=== PATIENT | male | born 1930 | race Caucasian/White ===

== ENCOUNTER 2017-12-16 10:03 | Inpatient (IN) | payer MEDICARE, OTHER ==
[~2017-12-16] VITALS: Ht 177.8 cm; Wt 79.8 kg
[2017-12-16] VITALS (13 sets, daily range): BP systolic 101–140; BP diastolic 55–76; PULSE 66–73; RESP 14–20; TEMP 96.3–98.1; O2SAT 94–100
[~2017-12-16 10:03] MED LIST: ALBU0.08 NEB; ALPR.25 PO; ASPI81CH6 CHEW; FURO1TAB62 PO; HYDR-3580 PO; IPRA0.02 NEB; MELA3TAB PO; PRED5TAB PO
[2017-12-16] MEDS ORDERED: SODIUM CHLORIDE 0.9% FLUSH 10 ML FLUSH IV FLUSH PRN ×2 (10:45→13:30)
--- NOTE | 2017-12-16 10:54 | PD ---
HPI Chief Complaint: Abnormal Results Time Seen by Provider: 10:26 Travel History International Travel<30 days: No Contact w/Intl Traveler<30days: No Traveled to known affect area: No History of Present Illness HPI Patient is an 86-year-old male presents emergency department for evaluation of decreased hemoglobin on recent blood work at the [place]. Patient has no complaints currently, denies any abdominal pain nausea vomiting diarrhea, in the stool or dark melena stool. States he doesn't think he needs to be here. States he's ever had a colonoscopy to me before, some mild confusion is apparent. Hemoglobin was apparently 6.8 at the correction. Condition is severe, associated signs symptoms and context as above, no alleviating or exacerbating factors. PFSH Past Medical History Narrative Medical COPD, history of urinary retention, insomnia. Past Surgical History Narrative Surgical Right leg orthopedic fixture, coronary artery stenting, Social History Tobacco Use: No Allergies-Medications (Allergen,Severity, Reaction): Coded Allergies: Penicillins (Verified Allergy, Severe, RASH, 12/16/17) ciprofloxacin (Verified Allergy, Severe, RASH, 12/16/17) Reported Meds & Prescriptions Reported Meds & Active Scripts Active Reported Spiriva Respimat Inh (Tiotropium Inh) 2.5 Mcg/Act Aero 2 Puff INH DAILY 2.5 mcg = 1 inhalation Prednisone 5 Mg Tab 5 Mg PO DAILY Ipratropium Neb (Ipratropium [place]) 0.5 Mg/2.5 Ml Amp 0.5 Mg NEB TID as needed. Hydrocodone-Acetaminophen 7.5 Mg-325 Mg Tab 1 Tab PO Q6H PRN Xanax (Alprazolam) 0.25 Mg Tab 0.25 Mg PO BID PRN Melatonin 3 Mg Tab 3 Mg PO HS Lasix (Furosemide) 20 Mg Tab 20 Mg PO DAILY Albuterol Neb (Albuterol Sulfate) 2.5 Mg/3 Ml Neb 2.5 Mg NEB QID NEB Aspirin Low Dose (Aspirin) 81 Mg Chew 81 Mg CHEW DAILY Review of Systems Except as stated in HPI: all other systems reviewed are Neg Physical Exam Narrative GENERAL: Well-developed well-nourished no obvious distress SKIN: Focused skin assessment warm/dry. HEAD: Atraumatic. Normocephalic. EYES: Pupils equal and round. No scleral icterus. No injection or drainage. ENT: No nasal bleeding or discharge. Mucous membranes pink and moist. NECK: Trachea midline. No JVD. CARDIOVASCULAR: Regular rate and rhythm. No murmur appreciated. RESPIRATORY: No accessory muscle use. Clear to auscultation. Breath sounds equal bilaterally. GASTROINTESTINAL: Abdomen soft, non-tender, nondistended. Hepatic and splenic margins not palpable. Rectal exam: Grossly melanotic stool Hemoccult positive. No masses no fissure prostate smooth.. MUSCULOSKELETAL: No obvious deformities. No clubbing. No cyanosis. No edema. NEUROLOGICAL: Awake and alert. No obvious cranial nerve deficits. Motor grossly within normal limits. Normal speech. PSYCHIATRIC: Appropriate mood and affect; insight and judgment normal. Data Data Last Documented VS Vital Signs Date Time Temp Pulse Resp B/P (MAP) Pulse Ox O2 Delivery O2 Flow Rate FiO2 12/16/17 13:15 97.8 66 17 116/62 (80) 99 Nasal Cannula 2.00 Orders Orders Complete Blood Count With Diff (12/16/17 10:37) Comprehensive Metabolic Panel (12/16/17 10:37) Iv Access Insert/Monitor (12/16/17 10:37) Ecg Monitoring (12/16/17 10:37) Oximetry (12/16/17 10:37) Sodium Chloride 0.9% Flush (Ns Flush) (12/16/17 10:45) Type And Screen (12/16/17 10:37) Act Partial Throm Time (Ptt) (12/16/17 10:37) Prothrombin Time / Inr (Pt) (12/16/17 10:37) Red Blood Cells (Rbc) (12/16/17 11:51) Blood Product Administration (12/16/17 11:51) Sodium Chlor 0.9% 250 Ml Inj (Ns 250 Ml (12/16/17 12:00) Admit Order (Ed Use Only) (12/16/17 ) Labs Laboratory Tests Test 12/16/17 10:50 White Blood Count 9.1 TH/MM3 Red Blood Count 2.66 MIL/MM3 Hemoglobin 7.3 GM/DL Hematocrit 21.8 % Mean Corpuscular Volume 82.1 FL Mean Corpuscular Hemoglobin 27.5 PG Mean Corpuscular Hemoglobin Concent 33.5 % Red Cell Distribution Width 16.0 % Platelet Count 218 TH/MM3 Mean Platelet Volume 8.2 FL Neutrophils (%) (Auto) 84.9 % Lymphocytes (%) (Auto) 8.5 % Monocytes (%) (Auto) 5.3 % Eosinophils (%) (Auto) 1.0 % Basophils (%) (Auto) 0.3 % Neutrophils # (Auto) 7.7 TH/MM3 Lymphocytes # (Auto) 0.8 TH/MM3 Monocytes # (Auto) 0.5 TH/MM3 Eosinophils # (Auto) 0.1 TH/MM3 Basophils # (Auto) 0.0 TH/MM3 CBC Comment DIFF FINAL Differential Comment Prothrombin Time 10.2 SEC Prothromb Time International Ratio 1.0 RATIO Activated Partial Thromboplast Time 25.4 SEC Blood Urea Nitrogen 74 MG/DL Creatinine 2.04 MG/DL Random Glucose 120 MG/DL Total Protein 6.9 GM/DL Albumin 2.9 GM/DL Calcium Level 9.0 MG/DL Alkaline Phosphatase 62 U/L Aspartate Amino Transf (AST/SGOT) 5 U/L Alanine Aminotransferase (ALT/SGPT) 10 U/L Total Bilirubin 0.2 MG/DL Sodium Level 137 MEQ/L Potassium Level 4.5 MEQ/L Chloride Level 103 MEQ/L Carbon Dioxide Level 25.2 MEQ/L Anion Gap 9 MEQ/L Estimat Glomerular Filtration Rate 31 ML/MIN [facility] Medical Decision Making Medical Screen Exam Complete: Yes Emergency Medical Condition: Yes Differential Diagnosis GI bleed, melena, anemia Narrative Course Vision roomed in emergency department, found to have a hemoglobin just in excess of 7, has grossly melanotic stools, discussed with him need for admission , he is not on any blood thinners, we'll be transfusing the emergency department any head wrist and discomfort patient and alternatives discussed with him. He is discussed with Dr. Velásquez for admission. Diagnosis Primary Impression: GI bleeding Additional Impression: Anemia Admitting Information Admitting Physician Requests: Admit Condition: Elder Sibley MD Dec 16, 2017 10:54
[2017-12-16] MEDS ORDERED: PRED5TAB PO (11:15)
[2017-12-16] MEDS ORDERED: TIOT12.9 INH (11:15)
[2017-12-16 11:47] LABS: AUTOMATED NEUTROPHIL # 7.7 TH/MM3 (1.8-7.7); BASOPHIL % 0.3 % (0.0-2.0); EOSINOPHIL # 0.1 TH/MM3 (0-0.4); HEMATOCRIT 21.8 % (39.0-51.0); HEMOGLOBIN 7.3 GM/DL (13.0-17.0); LYMPH % 8.5 % (9.0-44.0); LYMPHOCYTE # 0.8 TH/MM3 (1.0-4.8); MEAN CELL VOLUME 82.1 FL (80.0-100.0); MEAN CORPUSCULAR HEMOGLOBIN 27.5 PG (27.0-34.0); MEAN CORPUSCULAR HGB CONC 33.5 % (32.0-36.0); MEAN PLATELET VOLUME 8.2 FL (7.0-11.0); MONO % 5.3 % (0.0-8.0); MONOCYTE # 0.5 TH/MM3 (0-0.9); NEUT % 84.9 % (16.0-70.0); PLATELET COUNT 218 TH/MM3 (150-450); RED BLOOD COUNT 2.66 MIL/MM3 (4.50-5.90); WHITE BLOOD COUNT 9.1 TH/MM3 (4.0-11.0)
[2017-12-16] MEDS ORDERED: SODIUM CHLOR 0.9% 250 ML INJ 250 ML IV ONE ×2 (12:00→13:30)
[2017-12-16 12:07] LABS: ALBUMIN 2.9 GM/DL (3.4-5.0); ALT (GPT) 10 U/L (12-78); AST (GOT) 5 U/L (15-37); BICARBONATE 25.2 MEQ/L (21.0-32.0); BLOOD UREA NITROGEN 74 MG/DL (7-18); CHLORIDE 103 MEQ/L (98-107); CREATININE 2.04 MG/DL (0.60-1.30); GLOMERULAR FILTRATION RATE 31 ML/MIN (>89); GLUCOSE,RANDOM 120 MG/DL (74-106); SODIUM (NA) 137 MEQ/L (136-145)
[2017-12-16 12:10] LABS: ALKALINE PHOSPHATASE 62 U/L (45-117); TOTAL BILIRUBIN ADULT 0.2 MG/DL (0.2-1.0); TOTAL PROTEIN 6.9 GM/DL (6.4-8.2)
[2017-12-16 12:33] LABS: PROTHROMBIN TIME - PATIENT 10.2 SEC (9.8-11.6)
[2017-12-16] MEDS ORDERED: BISACODYL 10 MG SUPP RECTAL PRN (13:30)
[2017-12-16] MEDS ORDERED: ONDANSETRON HCL 4 MG/2 ML VIAL IVP PRN (13:30)
[2017-12-16] MEDS ORDERED: SENNOSIDES 8.6 MG TAB PO PRN (13:30)
[2017-12-16] MEDS ORDERED: LACTULOSE SYRUP 20 GM/30 ML CUP PO PRN (13:30)
[2017-12-16] MEDS ORDERED: NALOXONE HCL 0.4 MG/ML AMP IV PUSH PRN (13:30)
[2017-12-16] MEDS ORDERED: FUROSEMIDE 20 MG/2 ML VIAL IV PUSH ONE (14:00)
[2017-12-16] MEDS: PANTOPRAZOLE SODIUM 40 MG VIAL IV PUSH SCH (14:29)
[2017-12-16] MEDS: SODIUM CHLORIDE 0.9% FLUSH 10 ML FLUSH IV FLUSH SCH (21:00)
--- NOTE | 2017-12-16 21:12 | HHI.HP ---
[facility] Primary Care Physician Unknown Admission Diagnosis GI bleed, Melena, Anemia. Diagnoses: (1) GI bleeding (2) Anemia Travel History International Travel<30 Days: No Contact w/Intl Traveler <30 Da: No Traveled to Known Affected Are: No History of Present Illness 86M with mild to moderate dementia presents to the ER after outpatient labwork revealed a Hgb level of 6.8. ER rectal exam showed dark GUIAC positive stool. Patient says he is pain free, and does not recall any bloody stools in the toilet. He denies nausea, vomiting or melena. 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 Review of Systems ROS Limitations: Poor Historian Constitutional: DENIES: Fever Eyes: DENIES: Blurred vision, Vision loss Ears, nose, mouth, throat: DENIES: Hearing loss, Running Nose, Epistaxis Respiratory: DENIES: Cough, Hemoptysis Cardiovascular: DENIES: Chest pain, Palpitations, Syncope Musculoskeletal: COMPLAINS OF: Joint pain Psychiatric: COMPLAINS OF: Confusion Past Family Social History Past Medical History Unreliable history (he denies other medical issues) Past Surgical History Metal geri in right leg "a long time ago" Allergies: Coded Allergies: Penicillins (Verified Allergy, Severe, RASH, 12/16/17) ciprofloxacin (Verified Allergy, Severe, RASH, 12/16/17) Family History unable to recall Social History Distant past history of smoking cigarettes, social drinking (though not recently ) Physical Exam Vital Signs Vital Signs Date Time Temp Pulse Resp B/P (MAP) Pulse Ox O2 Delivery O2 Flow Rate FiO2 12/16/17 20:14 97.7 70 14 116/58 97 12/16/17 19:53 98 Nasal Cannula 2.00 12/16/17 19:51 97.8 72 14 140/65 97 12/16/17 17:05 98.0 69 16 108/65 (79) 98 Nasal Cannula 2.00 12/16/17 17:00 97.9 69 17 108/65 99 12/16/17 15:58 97.8 72 20 118/57 (77) 98 Nasal Cannula 2.00 12/16/17 14:45 97.9 70 18 114/56 100 12/16/17 14:30 97.8 68 16 101/55 99 12/16/17 13:15 97.8 66 17 116/62 (80) 99 Nasal Cannula 2.00 12/16/17 12:01 97.9 70 18 108/76 (87) 99 Nasal Cannula 2.00 12/16/17 10:50 20 98 Nasal Cannula 2.00 12/16/17 10:15 98.1 68 20 111/58 (75) 98 12/16/17 10:15 68 20 99 Nasal Cannula 2.00 Physical Exam GENERAL: This is a well-nourished, well-developed patient, baseline dementia with some possible new confusion SKIN: No rashes, ecchymoses or lesions. Cool and dry. HEAD: Atraumatic. Normocephalic. No temporal or scalp tenderness. EYES: Pupils equal round and reactive. Extraocular motions intact. No scleral icterus. No injection or drainage. ENT: Nose without bleeding, purulent drainage or septal hematoma. Throat without erythema, tonsillar hypertrophy or exudate. Uvula midline. Airway patent. NECK: Trachea midline. No JVD or lymphadenopathy. Supple, nontender, no meningeal signs. CARDIOVASCULAR: Regular rate and rhythm without murmurs, gallops, or rubs. RESPIRATORY: Clear to auscultation. Breath sounds equal bilaterally. No wheezes , rales, or rhonchi. GASTROINTESTINAL: Abdomen soft, non-tender, nondistended. No hepato-splenomegaly , or palpable masses. No guarding. MUSCULOSKELETAL: Extremities without clubbing, cyanosis, or edema. No joint tenderness, effusion, or edema noted. No calf tenderness. NEUROLOGICAL: Awake and alert. Cranial nerves II through XII intact. Motor and sensory grossly within normal limits. Five out of 5 muscle strength in all muscle groups. Normal speech. Laboratory Laboratory Tests Test 12/16/17 10:50 White Blood Count 9.1 Red Blood Count 2.66 Hemoglobin 7.3 Hematocrit 21.8 Mean Corpuscular Volume 82.1 Mean Corpuscular Hemoglobin 27.5 Mean Corpuscular Hemoglobin Concent 33.5 Red Cell Distribution Width 16.0 Platelet Count 218 Mean Platelet Volume 8.2 Neutrophils (%) (Auto) 84.9 Lymphocytes (%) (Auto) 8.5 Monocytes (%) (Auto) 5.3 Eosinophils (%) (Auto) 1.0 Basophils (%) (Auto) 0.3 Neutrophils # (Auto) 7.7 Lymphocytes # (Auto) 0.8 Monocytes # (Auto) 0.5 Eosinophils # (Auto) 0.1 Basophils # (Auto) 0.0 CBC Comment DIFF FINAL Differential Comment Prothrombin Time 10.2 Prothromb Time International Ratio 1.0 Activated Partial Thromboplast Time 25.4 Blood Urea Nitrogen 74 Creatinine 2.04 Random Glucose 120 Total Protein 6.9 Albumin 2.9 Calcium Level 9.0 Alkaline Phosphatase 62 Aspartate Amino Transf (AST/SGOT) 5 Alanine Aminotransferase (ALT/SGPT) 10 Total Bilirubin 0.2 Sodium Level 137 Potassium Level 4.5 Chloride Level 103 Carbon Dioxide Level 25.2 Anion Gap 9 Estimat Glomerular Filtration Rate 31 Result Diagram: 12/16/17 1050 12/16/17 1050 Caprini VTE Risk Assessment Caprini VTE Risk Assessment: Mod/High Risk (score >= 2) Caprini Risk Assessment Model Point Value = 1 Point Value = 2 Point Value = 3 Point Value = 5 Age 41-60 Minor surgery BMI > 25 kg/m2 Swollen legs Varicose veins or History of unexplained or recurrent spontaneous Oral contraceptives or hormone replacement Sepsis (< 1 month) Serious lung disease, including pneumonia (< 1 month) Abnormal pulmonary function Acute myocardial infarction Congestive heart failure (< 1 month) History of inflammatory bowel disease Medical patient at bed rest Age 61-74 Arthroscopic surgery Major open surgery (> 45 min) Laparoscopic surgery (> 45 min) Malignancy Confined to bed (> 72 hours) Immobilizing plaster cast Central venous access Age >= 75 History of VTE Family history of VTE Factor V Leiden Prothrombin [id number] Lupus anticoagulant Anticardiolipin antibodies Elevated serum homocysteine Heparin-induced thrombocytopenia Other congenital or acquired thrombophilia Stroke (< 1 month) Elective arthroplasty Hip, pelvis, or leg fracture Acute spinal cord injury (< 1 month) Prophylaxis Regimen Total Risk Factor Score Risk Level Prophylaxis Regimen 0-1 Low Early ambulation 2 Moderate Order ONE of the following: *Sequential Compression Device (SCD) *Heparin 5000 units SQ BID 3-4 Higher Order ONE of the following medications: *Heparin 5000 units SQ TID *Enoxaparin/Lovenox 40 mg SQ daily (WT < 150 kg, CrCl > 30 mL/min) *Enoxaparin/Lovenox 30 mg SQ daily (WT < 150 kg, CrCl > 10-29 mL/min) *Enoxaparin/Lovenox 30 mg SQ BID (WT < 150 kg, CrCl > 30 mL/min) AND/OR *Sequential Compression Device (SCD) 5 or more Highest Order ONE of the following medications: *Heparin 5000 units SQ TID (Preferred with Epidurals) *Enoxaparin/Lovenox 40 mg SQ daily (WT < 150 kg, CrCl > 30 mL/min) *Enoxaparin/Lovenox 30 mg SQ daily (WT < 150 kg, CrCl > 10-29 mL/min) *Enoxaparin/Lovenox 30 mg SQ BID (WT < 150 kg, CrCl > 30 mL/min) AND *Sequential Compression Device (SCD) Assessment and Plan Problem List: (1) GI bleeding ICD Code: K92.2 - Gastrointestinal hemorrhage, unspecified Status: Acute (2) Anemia ICD Code: D64.9 - Anemia, unspecified Status: Acute Assessment and Plan GI Bleed, Anemia Asymptomatic for the most part, so this may be more insidious than acute Transfuse 2 units of PRBC, follow Hgb trend GI consulted Confusion Staff describes some worsening of confusion throughout the day Possible worsening of dementia related to blood losses, possible owning due to unfamiliar location Continue transfusion and reassess Dementia Seems to be his basline, no dementia meds on med list Will reassess following transfusion COPD? Not by history, but by his PRN med list including ipratropium, albuterol, prednisone Will treat if symptoms develop DVT Prophylaxis Anticoagulants held due to GI bleed SCD's Fidel Velásquez MD Dec 16, 2017 21:12
[2017-12-17] VITALS: BP 113/61; PULSE 83; RESP 18; TEMP 97.7; O2SAT 96
[2017-12-17 06:29] LABS: AUTOMATED NEUTROPHIL # 6.4 TH/MM3 (1.8-7.7); BASOPHIL # 0.1 TH/MM3 (0-0.2); BASOPHIL % 0.6 % (0.0-2.0); EOSINOPHIL # 0.2 TH/MM3 (0-0.4); EOSINOPHIL % 1.6 % (0.0-4.0); HEMATOCRIT 27.3 % (39.0-51.0); HEMOGLOBIN 9.3 GM/DL (13.0-17.0); LYMPH % 20.1 % (9.0-44.0); LYMPHOCYTE # 1.9 TH/MM3 (1.0-4.8); MEAN CELL VOLUME 81.4 FL (80.0-100.0); MEAN CORPUSCULAR HEMOGLOBIN 27.8 PG (27.0-34.0); MEAN CORPUSCULAR HGB CONC 34.1 % (32.0-36.0); MEAN PLATELET VOLUME 8.1 FL (7.0-11.0); MONO % 8.3 % (0.0-8.0); MONOCYTE # 0.8 TH/MM3 (0-0.9); NEUT % 69.4 % (16.0-70.0); PLATELET COUNT 213 TH/MM3 (150-450); RED BLOOD COUNT 3.36 MIL/MM3 (4.50-5.90); RED CELL DISTRIBUTION WIDTH 15.9 % (11.6-17.2); WHITE BLOOD COUNT 9.2 TH/MM3 (4.0-11.0)
[2017-12-17 06:51] LABS: ALBUMIN 2.9 GM/DL (3.4-5.0); AST (GOT) 7 U/L (15-37); BICARBONATE 27.5 MEQ/L (21.0-32.0); BLOOD UREA NITROGEN 64 MG/DL (7-18); CALCIUM 9.3 MG/DL (8.5-10.1); CHLORIDE 106 MEQ/L (98-107); CREATININE 2.02 MG/DL (0.60-1.30); GLOMERULAR FILTRATION RATE 31 ML/MIN (>89); GLUCOSE,RANDOM 87 MG/DL (74-106); SODIUM (NA) 139 MEQ/L (136-145)
[2017-12-17 06:52] LABS: ALT (GPT) 7 U/L (12-78)
[2017-12-17 06:55] LABS: ALKALINE PHOSPHATASE 66 U/L (45-117); TOTAL BILIRUBIN ADULT 0.7 MG/DL (0.2-1.0); TOTAL PROTEIN 6.8 GM/DL (6.4-8.2)
[2017-12-17 08:00] VITALS: BP 133/79; PULSE 64; RESP 19; TEMP 97.8; O2SAT 96
[2017-12-17] MEDS: SODIUM CHLORIDE 0.9% FLUSH 10 ML FLUSH IV FLUSH SCH ×2 (09:00→20:53)
[2017-12-17 12:00] VITALS: BP 123/55; PULSE 70; RESP 21; TEMP 96.9; O2SAT 100
[2017-12-17] MEDS ORDERED: GLYCOPYRROLATE 1 MG/5 ML SYRINGE IV PUSH ONE (12:00)
[2017-12-17] MEDS ORDERED: PROPOFOL 200 MG/20 ML AMP IV ONE (12:00)
[2017-12-17] MEDS: ALPRAZolam 0.5 MG TAB PO PRN ×2 (12:56→20:49)
--- NOTE | 2017-12-17 15:04 | PD.PROCEDR ---
GI Procedure REFERRING PHYSICIAN Dr. Velásquez PROCEDURE PERFORMED EGD with biopsy INDICATION FOR PROCEDURE Melena, anemia PROCEDURE: The procedure, risks and benefits were discussed with Mr. Shaffer and informed consent was obtained. Anesthesia sedated him with Diprivan. He was placed in the left lateral decubitus position. EGD: The Pentax videoscope was introduced through the oropharynx and advanced to the second portion of the duodenum under direct visualization. Retroflexion was performed in the stomach. FINDINGS: Esophagus this was unremarkable except for an irregular Z line and this was biopsied Stomach there was a small hiatal hernia and there was some patchy and punctate erythema in the antrum but otherwise it was unremarkable no ulcers no erosions no blood or bleeding antral biopsies were taken for further evaluation The duodenum there was quite a bit of erythema and inflammation with a large ulcer in the duodenal bulb with raised edges and no visible vessel clean base and the edges were biopsied ESTIMATED BLOOD LOSS: None SPECIMENS REMOVED: Esophageal, gastric, duodenal biopsies COMPLICATIONS: None IMPRESSION: irregular Z line Hiatal hernia Gastritis Duodenitis Large duodenal bulb ulcer PLAN: Await biopsies avoid NSAIDs and aspirin and anticoagulation Continue with PPI Repeat endoscopy in 2 months Clear liquids for today probably can advance tomorrow if all is stable Follow-up with GI post discharge Benoit Patricio MD Dec 17, 2017 15:04
[2017-12-17 16:00] VITALS: BP 140/73; PULSE 80; RESP 20; TEMP 97.6; O2SAT 95
[2017-12-17] MEDS: PANTOPRAZOLE SODIUM 40 MG VIAL IV PUSH SCH ×2 (16:34→20:53)
[2017-12-17 17:04] LABS: AUTOMATED NEUTROPHIL # 7.6 TH/MM3 (1.8-7.7); BASOPHIL # 0.1 TH/MM3 (0-0.2); BASOPHIL % 0.6 % (0.0-2.0); EOSINOPHIL # 0.2 TH/MM3 (0-0.4); HEMATOCRIT 28.8 % (39.0-51.0); HEMOGLOBIN 9.8 GM/DL (13.0-17.0); LYMPH % 17.5 % (9.0-44.0); LYMPHOCYTE # 1.8 TH/MM3 (1.0-4.8); MEAN CELL VOLUME 82.2 FL (80.0-100.0); MEAN CORPUSCULAR HEMOGLOBIN 28.1 PG (27.0-34.0); MEAN CORPUSCULAR HGB CONC 34.2 % (32.0-36.0); MEAN PLATELET VOLUME 8.3 FL (7.0-11.0); MONO % 7.1 % (0.0-8.0); MONOCYTE # 0.7 TH/MM3 (0-0.9); NEUT % 72.8 % (16.0-70.0); PLATELET COUNT 235 TH/MM3 (150-450); RED CELL DISTRIBUTION WIDTH 16.1 % (11.6-17.2); WHITE BLOOD COUNT 10.5 TH/MM3 (4.0-11.0)
--- NOTE | 2017-12-17 17:25 | PD.CONS ---
HPI History of Present Illness This is a 86 year old male with dementia, emphysema who presented after abnormal labwork with anemia and guiac pos stool, and falling out of bed at [place] [facility]. His hgb is 7.3 on admission. 2 days ago he began having blood in his urine and black tarry stool. Denies prior hx GIB. Denies abd pain, n/v. His daughter thinks he may have had a colonoscopy but provide no further details. He is s/p EGD with finding duodenal ulcer. Pt is poor historian, hx obtained from pts daughter and from EMR. (Capri Bartlett) PFSH Past Medical History Unreliable history (he denies other medical issues) Past Surgical History Metal geri in right leg "a long time ago (Capri Bartlett) Coded Allergies: Penicillins (Verified Allergy, Severe, RASH, 12/16/17) ciprofloxacin (Verified Allergy, Severe, RASH, 12/16/17) Family History unable to recall Social History Distant past history of smoking cigarettes, social drinking (though not recently ) (Capri Bartlett) Review of Systems Constitutional: DENIES: Fever Eyes: DENIES: Blurred vision Respiratory: DENIES: Cough Cardiovascular: DENIES: Chest pain Gastrointestinal: COMPLAINS OF: Black stools, DENIES: Abdominal pain, Bloody stools, Constipation, Diarrhea, Nausea, Vomiting, Hematemesis Genitourinary: COMPLAINS OF: Hematuria Musculoskeletal: DENIES: Joint Swelling Psychiatric: DENIES: Anxiety (Capri Bartlett) GI Exam Vitals I&O Vital Signs Date Time Temp Pulse Resp B/P (MAP) Pulse Ox O2 Delivery O2 Flow Rate FiO2 12/17/17 15:05 97.9 68 20 127/57 (80) 99 12/17/17 12:00 96.9 70 21 123/55 (77) 100 12/17/17 08:00 97.8 64 19 133/79 (97) 96 12/17/17 00:00 97.7 83 18 113/61 (78) 96 12/16/17 20:14 97.7 70 14 116/58 97 12/16/17 20:00 96.3 73 17 120/64 (82) 94 12/16/17 19:53 98 Nasal Cannula 2.00 12/16/17 19:51 97.8 72 14 140/65 97 I/O 12/16/17 12/16/17 12/16/17 12/17/17 12/17/17 12/17/17 07:00 15:00 23:00 07:00 15:00 23:00 Intake Total 15 ml 810 ml 410 ml 200 ml Output Total 300 ml Balance 15 ml 810 ml 110 ml 200 ml Intake Packed Cells 400 ml 400 ml Blood Product IV Normal Saline Flush 15 ml 410 ml 10 ml Other 200 ml Output Urine Total 300 ml Laboratory Test 12/17/17 05:52 12/17/17 16:13 White Blood Count 9.2 TH/MM3 10.5 TH/MM3 Red Blood Count 3.36 MIL/MM3 3.50 MIL/MM3 Hemoglobin 9.3 GM/DL 9.8 GM/DL Hematocrit 27.3 % 28.8 % Mean Corpuscular Volume 81.4 FL 82.2 FL Mean Corpuscular Hemoglobin 27.8 PG 28.1 PG Mean Corpuscular Hemoglobin Concent 34.1 % 34.2 % Red Cell Distribution Width 15.9 % 16.1 % Platelet Count 213 TH/MM3 235 TH/MM3 Mean Platelet Volume 8.1 FL 8.3 FL Neutrophils (%) (Auto) 69.4 % 72.8 % Lymphocytes (%) (Auto) 20.1 % 17.5 % Monocytes (%) (Auto) 8.3 % 7.1 % Eosinophils (%) (Auto) 1.6 % 2.0 % Basophils (%) (Auto) 0.6 % 0.6 % Neutrophils # (Auto) 6.4 TH/MM3 7.6 TH/MM3 Lymphocytes # (Auto) 1.9 TH/MM3 1.8 TH/MM3 Monocytes # (Auto) 0.8 TH/MM3 0.7 TH/MM3 Eosinophils # (Auto) 0.2 TH/MM3 0.2 TH/MM3 Basophils # (Auto) 0.1 TH/MM3 0.1 TH/MM3 CBC Comment DIFF FINAL DIFF FINAL Differential Comment Blood Urea Nitrogen 64 MG/DL Creatinine 2.02 MG/DL Random Glucose 87 MG/DL Total Protein 6.8 GM/DL Albumin 2.9 GM/DL Calcium Level 9.3 MG/DL Alkaline Phosphatase 66 U/L Aspartate Amino Transf (AST/SGOT) 7 U/L Alanine Aminotransferase (ALT/SGPT) 7 U/L Total Bilirubin 0.7 MG/DL Sodium Level 139 MEQ/L Potassium Level 4.5 MEQ/L Chloride Level 106 MEQ/L Carbon Dioxide Level 27.5 MEQ/L Anion Gap 6 MEQ/L Estimat Glomerular Filtration Rate 31 ML/MIN Physical Examination HEENT: PERRL; normocephalic; atraumatic; no jaundice. CHEST: expiratory wheezes CARDIAC: irregular HR ABDOMEN: Soft, nondistended, nontender; no hepatosplenomegaly; bowel sounds are present in all four quadrants. EXTREMITIES: No clubbing, cyanosis, or edema. SKIN: Normal; no rash; no jaundice. CUSTOMER COUNTER REPRESENTATIVE: alert, mildly confused (Capri Bartlett) Assessment and Plan Plan ASSESSMENT - anemia with melanotic stool - normocytic, hgb 7.3 on admission. black tarry stool for 2 days. s/p EGD 12/17/17 found irregular z line, hiatal hernia, gastritis, duodenitis and a large duodenal bulb ulcer HH stable throughout the day PLAN - await bx - clear liquids for now - can advance diet tomorrow if no bleeding - monitor HH - transfuse as needed - bid protonix - EGD in 2months pt seen by myself and Dr Hadley and this note is written on his behalf (Capri Bartlett) Plan Patient was seen and examined, agree with above-noted, patient agreed to have an endoscopy, showed duodenal ulcer, will treat patient with PPI and packed RBC as needed (Lisa Hadley MD) Capri Bartlett Dec 17, 2017 17:25 Lisa Hadley MD Dec 17, 2017 19:37
--- NOTE | 2017-12-17 18:16 | HHI.PR ---
Subjective Remarks Inititally today Mr. Prasad was refusing all GI interventions, but his daughter arrived and was able to convince him to undergo the tests. He is compliant in the presence of his daughter. No new or significant blood losses today. Objective Vitals Vital Signs Date Time Temp Pulse Resp B/P (MAP) Pulse Ox O2 Delivery O2 Flow Rate FiO2 12/17/17 16:00 97.6 80 20 140/73 (95) 95 12/17/17 15:05 97.9 68 20 127/57 (80) 99 12/17/17 12:00 96.9 70 21 123/55 (77) 100 12/17/17 08:00 97.8 64 19 133/79 (97) 96 12/17/17 00:00 97.7 83 18 113/61 (78) 96 12/16/17 20:14 97.7 70 14 116/58 97 12/16/17 20:00 96.3 73 17 120/64 (82) 94 12/16/17 19:53 98 Nasal Cannula 2.00 12/16/17 19:51 97.8 72 14 140/65 97 I/O 12/16/17 12/16/17 12/16/17 12/17/17 12/17/17 12/17/17 07:00 15:00 23:00 07:00 15:00 23:00 Intake Total 15 ml 810 ml 410 ml 200 ml Output Total 300 ml Balance 15 ml 810 ml 110 ml 200 ml Intake Packed Cells 400 ml 400 ml Blood Product IV Normal Saline Flush 15 ml 410 ml 10 ml Other 200 ml Output Urine Total 300 ml Result Diagram: 12/17/17 1613 12/17/17 0552 Objective Remarks GENERAL: Well-nourished, well-developed patient, at times exhibits an abrasive manner SKIN: Warm and dry. HEAD: Normocephalic. EYES: No scleral icterus. No injection or drainage. NECK: Supple, trachea midline. No JVD or lymphadenopathy. CARDIOVASCULAR: Regular rate and rhythm without murmurs, gallops, or rubs. RESPIRATORY: Breath sounds equal bilaterally. No accessory muscle use. GASTROINTESTINAL: Abdomen soft, non-tender, nondistended. EXTREMITIES: No cyanosis, or edema. NEUROLOGICAL: Awake, alert, and oriented x 3. Non-focal. A/P Problem List: (1) GI bleeding ICD Code: K92.2 - Gastrointestinal hemorrhage, unspecified Status: Acute (2) Anemia ICD Code: D64.9 - Anemia, unspecified Status: Acute Assessment and Plan GI Bleed, Anemia Asymptomatic for the most part, so this may be more insidious than acute Received 2 units of PRBC's, thus far Hgb appears stable EGD did not show a source of significant blood loss, no active bleed Appreciate GI consult Dementia w/ Confusion Baseline dementia, less confused today He does well when his daughter is present COPD? Not by history, but by his PRN med list including ipratropium, albuterol, prednisone Will treat if symptoms develop DVT Prophylaxis Anticoagulants held due to GI bleed SCD's Disposition If Hgb is stable in the a.m., will play for discharge home with follow up labwork Fidel Velásquez MD Dec 17, 2017 18:15
[2017-12-17 20:00] VITALS: BP 131/60; PULSE 66; RESP 20; TEMP 98.2; O2SAT 97
[2017-12-17 23:30] VITALS: O2SAT 97
[2017-12-18] VITALS: BP 101/58; PULSE 64; RESP 18; TEMP 97.2; O2SAT 97
[2017-12-18 08:00] VITALS: BP 96/59; PULSE 72; RESP 18; TEMP 97.5; O2SAT 95
[2017-12-18] MEDS: ALPRAZolam 0.5 MG TAB PO PRN (08:27)
[2017-12-18] MEDS: PANTOPRAZOLE SODIUM 40 MG VIAL IV PUSH SCH (08:27)
[2017-12-18] MEDS: SODIUM CHLORIDE 0.9% FLUSH 10 ML FLUSH IV FLUSH SCH (08:27)
[2017-12-18 09:07] VITALS: O2SAT 97
--- NOTE | 2017-12-18 09:24 | EKG ---
Date Performed: 12/17/2017 Time Performed: 14:14:56 PTAGE: 86 years EKG: Sinus rhythm WITH OCCASIONAL VENTRICULAR PREMATURE COMPLEXES MODERATE INTRAVENTRICULAR CONDUCTION DELAY ABNORMAL ECG NO PREVIOUS TRACING DOCTOR: Herbert Hurley Interpretating Date/Time 12/18/2017 09:22:19
--- NOTE | 2017-12-18 11:34 | HHI.DS ---
Discharge Summary Admission Date Dec 16, 2017 at 13:22 Discharge Date: Dec 18, 2017 Admitting Diagnosis GI bleed, Melena, Anemia. (1) GI bleeding ICD Code: K92.2 - Gastrointestinal hemorrhage, unspecified Status: Acute (2) Anemia ICD Code: D64.9 - Anemia, unspecified Status: Acute Procedures EGD Brief History - From Admission 86M with mild to moderate dementia presents to the ER after outpatient labwork revealed a Hgb level of 6.8. ER rectal exam showed dark GUIAC positive stool. Patient says he is pain free, and does not recall any bloody stools in the toilet. He denies nausea, vomiting or melena. 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 CBC/BMP: 12/18/17 0849 12/17/17 0552 Significant Findings Laboratory Tests Test 12/16/17 10:50 12/17/17 05:52 12/17/17 16:13 12/18/17 08:49 Red Blood Count 2.66 MIL/MM3 (4.50-5.90) 3.36 MIL/MM3 (4.50-5.90) 3.50 MIL/MM3 (4.50-5.90) Hemoglobin 7.3 GM/DL (13.0-17.0) 9.3 GM/DL (13.0-17.0) 9.8 GM/DL (13.0-17.0) 9.6 GM/DL (13.0-17.0) Hematocrit 21.8 % (39.0-51.0) 27.3 % (39.0-51.0) 28.8 % (39.0-51.0) Neutrophils (%) (Auto) 84.9 % (16.0-70.0) 72.8 % (16.0-70.0) Lymphocytes (%) (Auto) 8.5 % (9.0-44.0) Lymphocytes # (Auto) 0.8 TH/MM3 (1.0-4.8) Blood Urea Nitrogen 74 MG/DL (7-18) 64 MG/DL (7-18) Creatinine 2.04 MG/DL (0.60-1.30) 2.02 MG/DL (0.60-1.30) Random Glucose 120 MG/DL (74-106) Albumin 2.9 GM/DL (3.4-5.0) 2.9 GM/DL (3.4-5.0) Aspartate Amino Transf (AST/SGOT) 5 U/L (15-37) 7 U/L (15-37) Alanine Aminotransferase (ALT/SGPT) 10 U/L (12-78) 7 U/L (12-78) Estimat Glomerular Filtration Rate 31 ML/MIN (>89) 31 ML/MIN (>89) Monocytes (%) (Auto) 8.3 % (0.0-8.0) PE at Discharge GENERAL: Well-nourished, well-developed patient, at times exhibits an abrasive manner SKIN: Warm and dry. HEAD: Normocephalic. EYES: No scleral icterus. No injection or drainage. NECK: Supple, trachea midline. No JVD or lymphadenopathy. CARDIOVASCULAR: Regular rate and rhythm without murmurs, gallops, or rubs. RESPIRATORY: Breath sounds equal bilaterally. No accessory muscle use. GASTROINTESTINAL: Abdomen soft, non-tender, nondistended. EXTREMITIES: No cyanosis, or edema. NEUROLOGICAL: Awake, alert, and oriented x 3. Non-focal. Hospital Course 86M with symptomatic anemia, Hgb 6.8, was sent to the ER for evaluation and found to have chronic vs. acute melena. He underwent EGD which did not reveal any active areas of bleeding, only gastritis. Following transfusion of 2 units PRBC his Hgb remains stable after 2 days. He is stable for discharge with serial CBC weekly x 3 weeks and a follow up with GI in 2 months. Pt Condition on Discharge: Good Discharge Disposition: Discharge to SNF Discharge Time: <= 30 minutes Discharge Instructions DIET: Follow Instructions for: Heart Healthy Diet Activities you can perform: Regular-No Restrictions Fidel Velásquez MD Dec 18, 2017 11:34
[2017-12-18 12:00] VITALS: BP 100/56; PULSE 52; RESP 17; TEMP 96.8; O2SAT 96
--- NOTE | 2017-12-18 14:53 | HHI.GIFU ---
Subjective Remarks Pt resting in bed, in civilian clothes, ready to go home. (Capri Bartlett) Objective Vitals I&O Vital Signs Date Time Temp Pulse Resp B/P (MAP) Pulse Ox O2 Delivery O2 Flow Rate FiO2 12/18/17 12:00 96.8 52 17 100/56 (71) 96 12/18/17 09:07 97 Nasal Cannula 3.00 12/18/17 08:00 97.5 72 18 96/59 (71) 95 12/18/17 00:00 97.2 64 18 101/58 (72) 97 12/17/17 23:30 97 Nasal Cannula 3.00 12/17/17 20:00 98.2 66 20 131/60 (83) 97 12/17/17 16:00 97.6 80 20 140/73 (95) 95 12/17/17 15:05 97.9 68 20 127/57 (80) 99 I/O 12/17/17 12/17/17 12/17/17 12/18/17 12/18/17 12/18/17 07:00 15:00 23:00 07:00 15:00 23:00 Intake Total 410 ml 200 ml 480 ml 240 ml Output Total 300 ml 400 ml 600 ml Balance 110 ml 200 ml 80 ml -360 ml Intake Oral 480 ml 240 ml Packed Cells 400 ml Blood Product IV Normal Saline Flush 10 ml Other 200 ml Output Urine Total 300 ml 400 ml 600 ml # Bowel Movements 0 0 Laboratory Laboratory Tests Test 12/17/17 16:13 12/18/17 08:49 White Blood Count 10.5 Red Blood Count 3.50 Hemoglobin 9.8 9.6 Hematocrit 28.8 Mean Corpuscular Volume 82.2 Mean Corpuscular Hemoglobin 28.1 Mean Corpuscular Hemoglobin Concent 34.2 Red Cell Distribution Width 16.1 Platelet Count 235 Mean Platelet Volume 8.3 Neutrophils (%) (Auto) 72.8 Lymphocytes (%) (Auto) 17.5 Monocytes (%) (Auto) 7.1 Eosinophils (%) (Auto) 2.0 Basophils (%) (Auto) 0.6 Neutrophils # (Auto) 7.6 Lymphocytes # (Auto) 1.8 Monocytes # (Auto) 0.7 Eosinophils # (Auto) 0.2 Basophils # (Auto) 0.1 CBC Comment DIFF FINAL Differential Comment Physical Exam HEENT: PERRL; normocephalic; atraumatic; no jaundice. CHEST: respirations unlabored ABDOMEN: Soft, nondistended, nontender; EXTREMITIES: No clubbing, cyanosis, or edema. SKIN: Normal; no rash; no jaundice. DIRECTOR OF DIETARY: alert (Capri Bartlett) Assessment and Plan Plan - anemia with melanotic stool - normocytic, hgb 7.3 on admission. black tarry stool for 2 days. s/p EGD 12/17/17 found irregular z line, hiatal hernia, gastritis, duodenitis and a large duodenal bulb ulcer HH stable throughout the day 12/18/17 HH stable, pt going home. PLAN - await bx - bid protonix - EGD in 2months - f/u with GI after d/c - ok to d/c from GI standpoint pt seen by myself and Dr Hadley and this note is written on his behalf (Capri Bartlett) Plan Patient was seen and examined, agree with above note, found to have peptic ulcer disease, hemoglobin stable, we will send and follow up in two-month (Lisa Hadley MD) Capri Bartlett Dec 18, 2017 14:53 Lisa Hadley MD Dec 18, 2017 16:20
[2017-12-18 15:18] VITALS: BP 103/57; PULSE 73; RESP 17; TEMP 97; O2SAT 96
== END 2017-12-18 15:13 | DRG 379 ==
LOC: NEPE 10:03 → NEDA 13:22 → N07B 16:31 → NEDA 17:35 → N07B 18:33
PROVIDERS: ADMIT Family Medicine; ATTEND Family Medicine
PROC: 30233N1 Transfusion of Nonautologous Red Blood Cells into Peripheral Vein, Percutaneous Approach (ICD-10-PCS; principal; 2017-12-16)
PROC: 0DB98ZX Excision of Duodenum, Via Natural or Artificial Opening Endoscopic, Diagnostic (ICD-10-PCS; 2017-12-17)
PROC: 0DB68ZX Excision of Stomach, Via Natural or Artificial Opening Endoscopic, Diagnostic (ICD-10-PCS; 2017-12-17)
PROC: 0DB58ZX Excision of Esophagus, Via Natural or Artificial Opening Endoscopic, Diagnostic (ICD-10-PCS; 2017-12-17)
DX: K92.1 Melena (principal); F03.90 Unspecified dementia, unspecified severity, without behavioral disturbance, psychotic disturbance, mood disturbance, and anxiety; K26.9 Duodenal ulcer, unspecified as acute or chronic, without hemorrhage or perforation; D64.9 Anemia, unspecified; K44.9 Diaphragmatic hernia without obstruction or gangrene; K29.70 Gastritis, unspecified, without bleeding; K29.80 Duodenitis without bleeding; Z87.891 Personal history of nicotine dependence
CPT/HCPCS: 36430; 80053; 85018; 85025; 85610; 85730; 86850; 86900; 86901; 86920; 88305; 88312; 93005; 99285; C9113; J1940; J7050; P9016